=== PATIENT | female | born 1980 | race Caucasian/White ===

== ENCOUNTER 2016-11-04 11:57 | Emergency (ER) | payer BC ==
[2016-11-04 12:06] VITALS: BP 121/77
[2016-11-04] MEDS ORDERED: BUTALB/ACETAMINOPHEN/CAFFEINE 1 TAB EACH PO ONE (12:50)
[2016-11-04] MEDS ORDERED: IBUPROFEN 600 MG TABLET PO ONE (12:50)
--- NOTE | 2016-11-04 12:50 | ER Document Report ---
ED General - General Chief Complaint: Numbness of Face Stated Complaint: MOUTH NUMBNESS Notes: Patient is a 36-year-old female without past medical history who presents with perioral paresthesias that have been present and fluctuating the past 24 hours. No history of similar symptoms in the past. Nothing improves or worsens or symptoms. They have been unchanged since onset. She has not seen her primary care doctor regarding today's concerns. She denies any facial weakness, true numbness to the area, dental pain, fever, weakness, or numbness in the remainder of her body. She did have a mild headache yesterday she states which did spontaneously resolve after she took ibuprofen but the perioral tingling did not start until several hours thereafter. Denies any trauma or damage to the area. She is not taking any medications other than vitamins. TRAVEL OUTSIDE OF THE [place] IN LAST 30 DAYS: No - Related Data Allergies/Adverse Reactions: shellfish derived Allergy (Verified 11/04/16 12:06) Past Medical History - General Information source: Patient - Social History Smoking Status: Never Smoker Frequency of alcohol use: Occasional Drug Abuse: None Lives with: Spouse/Significant other Family History: Reviewed & Not Pertinent Patient has suicidal ideation: No Patient has homicidal ideation: No Renal/ Medical History: Denies: Hx Peritoneal Dialysis Past Surgical History: Reports: Hx Section - x3, Hx Cholecystectomy - 2012 Review of Systems - Review of Systems Notes: Constitutional: Negative for fever. HENT: Negative for sore throat. Eyes: Negative for visual changes. Cardiovascular: Negative for chest pain. Respiratory: Negative for shortness of breath. Gastrointestinal: Negative for abdominal pain, vomiting or diarrhea. Genitourinary: Negative for dysuria. Musculoskeletal: Negative for back pain. Skin: Negative for rash. Neurological: Negative for headaches, positive for facial paresthesias 10 point ROS negative except as marked above and in HPI. Physical Exam - Vital signs Vitals: Temp Pulse Resp BP Pulse Ox 98.4 F 61 20 121/77 100 11/04/16 12:04 11/04/16 12:04 11/04/16 12:04 11/04/16 12:04 11/04/16 12:04 Interpretation: Normal Notes: PHYSICAL EXAMINATION: GENERAL: Well-appearing, well-nourished and in no acute distress. HEAD: Atraumatic, normocephalic. EYES: Pupils equal round and reactive to light, extraocular movements intact, sclera anicteric, conjunctiva are normal. ENT: nares patent, oropharynx clear without exudates. Moist mucous membranes. NECK: Normal range of motion, supple without lymphadenopathy LUNGS: Breath sounds clear to auscultation bilaterally and equal. No wheezes rales or rhonchi. HEART: Regular rate and rhythm without murmurs ABDOMEN: Soft, nontender, normoactive bowel sounds. No guarding, no rebound. No masses appreciated. EXTREMITIES: Normal range of motion, no pitting or edema. No cyanosis. NEUROLOGICAL: Face symmetric. Tongue protrudes midline. Extraocular motions intact. Pupils are 2 mm and equally reactive. Normal sensory exam in the trigeminal distributions bilaterally. There is no facial nerve palsy. Normal speech, normal gait. 5 out of 5 strength in both the distal and proximal upper and lower extremities bilaterally. Sensation is grossly intact throughout. Finger to nose testing normal. Pronator drift normal. PSYCH: Normal mood, normal affect. SKIN: Warm, Dry, normal turgor, no rashes or lesions noted. Course - Re-evaluation Re-evalutation: 11/04/16 12:45 Patient presents with vague symptoms of intermittent paresthesias around the perioral region without any focal neurologic deficit. She has no sensory deficit on facial exam and no facial nerve paralysis. Her symptoms are bilateral which would require her bilateral lower trigeminal branch would be involved which seems unlikely. A stroke would not present with isolated paresthesias just around the mouth and lower chin and again the symptoms are bilateral. Patient has no evidence of a dental abscess or space-occupying lesion in oral cavity that could cause irritation of this area. She did have a mild headache yesterday and this could be residual effect accomplice migraine headache although this seems unlikely. At this time the exact etiology of patient's presentation is unclear although I do not feel it is from any acute life-threatening or neurologic injury. I recommended that she monitor her symptoms at home and return to the emergency department immediately for any new or worsening neurologic symptoms. I also informed her that should her symptoms fail to resolve in the next several days to week she will need to follow-up with neurology for consideration of an outpatient MRI to evaluate for an atypical presentation of MS or an alternative demyelinating disorder - Vital Signs Vital signs: Temp Pulse Resp BP Pulse Ox 98.4 F 61 20 121/77 100 11/04/16 12:04 11/04/16 12:36 11/04/16 12:36 11/04/16 12:36 11/04/16 12:36 Discharge - Discharge Clinical Impression: perioral anesthesia, Paresthesias Condition: Good Disposition: HOME, SELF-CARE Additional Instructions: The exact cause her symptoms is unclear today she should continue to monitor at home to be sure that they do improve over the next several days to one week. Ifsymptoms are failing to improve or worsening you need to follow-up with neurology for consideration of an outpatient MRI of your head. Return if you develop any focal weakness, numbness, pass out, or have any other symptoms that are worrisome to you.
--- NOTE | 2016-11-04 15:11 | EKG REPORT ---
SEVERITY:- NORMAL ECG - SINUS RHYTHM : Confirmed by: Anup Zelaya MD 04-Nov-2016 15:11:11
== END 2016-11-04 14:00 | disposition home or self-care (01) ==
LOC: ER 11:57
DX: R20.2 Paresthesia of skin (principal); Z79.899 Other long term (current) drug therapy; Z91.013 Allergy to seafood
CPT/HCPCS: 93005; 99284; 93010; J3490